=== PATIENT | male | born 1990 | race American Indian/Alaskan Native ===

== ENCOUNTER 2017-05-02 00:11 | Day surgery (SDC) | payer SELFPAY ==
[~2017-05-02] VITALS: Ht 167.6 cm; Wt 93.0 kg
--- OUTSIDE RECORDS SUMMARY | 2017-05-02 00:19 | XMS REPORT | Continuity of Care Document ---
Author Author [facility] Organization [facility] Address Unknown Phone Unavailable Allergies Active Description Code Type Severity Reaction Onset Reported/Identified Relationship to Patient Clinical Status Yes cefaclor [id number] Drug Allergy Moderate RASH 06/23/2014 Medications Problems Date Dx Coded Attending Type Code Diagnosis Diagnosed By 06/23/2014 TANA ESPINOZA DO Ot 981 06/23/2014 TANA ESPINOZA DO Ot E000.8 06/23/2014 TANA ESPINOZA DO Ot E862.1 Procedures Results Encounters ACCT No. Visit Date/Time Discharge Status Pt. Type Provider Facility Loc./Unit Complaint [id number] 06/23/2014 03:36:00 2014 04:29:00 DIS Emergency TANA ESPINOZA DO [facility] ER
[2017-05-02] MEDS ORDERED: fentaNYL INJECTION 100 MCG/2 ML AMP IVP STA ×3 (01:31→05:44)
[2017-05-02] MEDS ORDERED: NS IV 1000 ML 1,000 ML IV ONE (01:31)
--- NOTE | 2017-05-02 01:35 | ED Abdominal Pain ---
General Chief Complaint: Abdominal/GI Problems Stated Complaint: ABD PAIN Nursing Triage Note: C/O UPPER ABDOMINAL PAIN SINCE 1800 Sepsis Screen: No Definite Risk Source of Information: Patient Exam Limitations: No Limitations History of Present Illness Time Seen By Provider: 01:20 Initial Comments Here with report of central abdominal pain that has been going on since about 5 or 6 p.m. tonight. No vomiting but did have some nausea. Did take promethazine tablet and Pepto-Bismol and this did not help with the pain. Reports the pain is 9 out of 10 and constant. Had a history of happening one time previous but went away on its own. This time has not resolved. Does not seem to be associated with anything. Did have breakfast and lunch but did not eat dinner due to the pain. Timing/Duration: 4-6 Hours Severity/Quality: Moderate, Severe, Aching Location: Epigastric Radiation: No Radiation Activities at Onset: None Modifying Factors: Worsens With Breathing, Worsens With Movement Associated Symptoms: No Back Pain, No Chest Pain, No Fever/Chills, Nausea/ Vomiting, No Shortness of Air, No Weakness Allergies and Home Medications Allergies Coded Allergies: cefaclor (Unverified Allergy, Intermediate, RASH, 06/23/14) Home Medications No Active Prescriptions or Reported Meds Review of Systems Constitutional: see HPI, No chills, No fever EENTM: No Symptoms Reported Respiratory: No Symptoms Reported Cardiovascular: No Symptoms Reported Gastrointestinal: See HPI, Abdominal Pain, Denies Diarrhea, Nausea, Denies Vomiting Genitourinary: No Symptoms Reported Musculoskeletal: no symptoms reported All Other Systems Reviewed Negative Unless Noted: Yes Past Bjriwdk-Hgmozu-Xlupkv Hx Patient Social History Alcohol Use: Occasionally Uses Alcohol Beverage of Choice: Beer Recreational Drug Use: No Smoking Status: Never a Smoker Type Used: Smokeless Tobacco 2nd Hand Smoke Exposure: No Recent Foreign Travel: No Contact w/Someone Who Travel: No Recent Infectious Disease Expo: No Recent Hopitalizations: No Immunizations Up To Date Tetanus Booster (TDap): Unknown Seasonal Allergies Seasonal Allergies: No Surgeries History of Surgeries: Yes Surgeries: Adenoidectomy, Tonsillectomy Respiratory History of Respiratory Disorde: No Cardiovascular History of Cardiac Disorders: No Neurological History of Neurological Disord: No Reproductive System Hx Reproductive Disorders: No Sexually Transmitted Disease: No Genitourinary History of Genitourinary Disor: No Gastrointestinal History of Gastrointestinal Di: No Musculoskeletal History of Musculoskeletal Dis: No Endocrine History of Endocrine Disorders: No HEENT History of HEENT Disorders: No Cancer History of Cancer: No Psychosocial History of Psychiatric Problem: No Integumentary History of Skin or Integumenta: No Blood Transfusions History of Blood Disorders: No Reviewed Nursing Assessment Reviewed/Agree w Nursing PMH: Yes Family Medical History Significant Family History: No Pertinent Family Hx Physical Exam Vital Signs VS - Last 72 Hours, by Label 05/02/17 05/02/17 00:48 01:47 Temp 98.3 98.3 Pulse 68 Resp 18 B/P (MAP) 118/65 Pulse Ox 100 O2 Delivery Room Air Capillary Refill : Less Than 3 Seconds General Appearance: WD/WN, moderate distress (pain related) HEENT: PERRL/EOMI, pharynx normal Neck: full range of motion, supple Respiratory: lungs clear, normal breath sounds Cardiovascular: regular rate, rhythm, no murmur Gastrointestinal: normal bowel sounds, No guarding, No rebound, tenderness Extremities: non-tender, normal inspection Back: normal inspection, no CVA tenderness, no vertebral tenderness Neurologic/Psychiatric: alert, normal mood/affect, oriented x 3 Skin: normal color, warm/dry Progress/Results/Core Measures Results/Orders Lab Results Laboratory Tests Test 05/02/17 01:45 Range/Units White Blood Count 15.1 H 4.3-11.0 10^3/uL Red Blood Count 4.88 4.35-5.85 10^6/uL Hemoglobin 15.1 13.3-17.7 G/DL Hematocrit 42 40-54 % Mean Corpuscular Volume 86 80-99 FL Mean Corpuscular Hemoglobin 31 25-34 PG Mean Corpuscular Hemoglobin Concent 36 32-36 G/DL Red Cell Distribution Width 12.4 10.0-14.5 % Platelet Count 259 130-400 10^3/uL Mean Platelet Volume 10.6 H 7.4-10.4 FL Neutrophils (%) (Auto) 77 H 42-75 % Lymphocytes (%) (Auto) 12 12-44 % Monocytes (%) (Auto) 11 0-12 % Eosinophils (%) (Auto) 1 0-10 % Basophils (%) (Auto) 0 0-10 % Neutrophils # (Auto) 11.6 H 1.8-7.8 X 10^3 Lymphocytes # (Auto) 1.8 1.0-4.0 X 10^3 Monocytes # (Auto) 1.6 H 0.0-1.0 X 10^3 Eosinophils # (Auto) 0.1 0.0-0.3 10^3/uL Basophils # (Auto) 0.0 0.0-0.1 10^3/uL Neutrophils % (Manual) 81 % Lymphocytes % (Manual) 12 % Monocytes % (Manual) 6 % Eosinophils % (Manual) 1 % Blood Morphology Comment NORMAL Sodium Level 137 135-145 MMOL/L Potassium Level 4.0 3.6-5.0 MMOL/L Chloride Level 104 98-107 MMOL/L Carbon Dioxide Level 23 21-32 MMOL/L Anion Gap 10 5-14 MMOL/L Blood Urea Nitrogen 16 7-18 MG/DL Creatinine 1.02 0.60-1.30 MG/DL Estimat Glomerular Filtration Rate > 60 BUN/Creatinine Ratio 16 Glucose Level 109 H 70-105 MG/DL Calcium Level 9.4 8.5-10.1 MG/DL Total Bilirubin 0.6 0.1-1.0 MG/DL Aspartate Amino Transf (AST/SGOT) 21 5-34 U/L Alanine Aminotransferase (ALT/SGPT) 22 0-55 U/L Alkaline Phosphatase 59 40-136 U/L Total Protein 7.3 6.4-8.2 GM/DL Albumin 4.5 3.2-4.5 GM/DL Amylase Level 35 25-125 U/L Lipase 9 8-78 U/L My Orders Orders - CUONG MEJIA MD Amylase (05/02/17 01:31) Cbc With Automated Diff (05/02/17 01:31) Comprehensive Metabolic Panel (05/02/17 01:31) Lipase (05/02/17 01:31) Saline Lock/Iv-Start (05/02/17:31) Ns Iv 1000 Ml (Sodium Chloride 0.9%) (05/02/17 01:31) Fentanyl Injection (Sublimaze Injection (05/02/17 01:31) Manual Differential (05/02/17 01:45) Lidocaine 2% Viscous 15 Ml (Xylocaine Vi (05/02/17 04:00) Antacid Suspension (Mylanta Suspension (05/02/17 04:00) Famotidine Injection (Pepcid Injection) (05/02/17 03:51) Fentanyl Injection (Sublimaze Injection (05/02/17 03:51) Ct Abdomen/Pelvis W (05/02/17 03:51) Iohexol Injection (Omnipaque 350 Mg/Ml 1 (05/02/17 04:30) Ns (Ivpb) (Sodium Chloride 0.9% Ivpb Bag (05/02/17 04:30) Medications Given in ED Current Medications Medications Dose Ordered Sig/Eliu Route Start Time Stop Time Status Last Admin Dose Admin Al Hydrox/Mg Hydrox/Simethicone 30 ml ONCE ONCE PO 05/02/17 04:00 05/02/17 04:01 DC 05/02/17 04:01 30 ML Iohexol 100 ml ONCE ONCE IV 05/02/17 04:30 05/02/17 04:31 DC 05/02/17 04:24 100 ML Lidocaine HCl 15 ml ONCE ONCE PO 05/02/17 04:00 05/02/17 04:01 DC 05/02/17 04:01 15 ML Sodium Chloride 100 ml ONCE ONCE IV 05/02/17 04:30 05/02/17 04:31 DC 05/02/17 04:24 80 ML Sodium Chloride 1,000 ml @ 0 mls/hr Q0M ONCE IV 05/02/17 01:31 05/02/17 01:32 DC 05/02/17 01:47 0 MLS/HR Vital Signs/I&O Vital Sign - Last 12Hours 05/02/17 05/02/17 00:48 01:47 Temp 98.3 98.3 Pulse 68 Resp 18 B/P (MAP) 118/65 Pulse Ox 100 O2 Delivery Room Air Blood Pressure Mean: 82 Progress Note : Progress Note Seen and evaluated. IV, labs, normal saline 1 L bolus and fentanyl 75 g IV ordered. Monitor patient. Patient has persistent abdominal pain. CT abdomen pelvis ordered. Repeat fentanyl 75 g IV and GI cocktail ordered. Patient still complains of epigastric abdominal pain. 0510: Call from stat rad to inform of critical finding of acute appendicitis received. Reevaluation of the patient after. Patient still complaining of epigastric abdominal pain but on recheck of right lower quadrant, pain is noted. I did discuss the case with Dr. Aguila who is currently in the OR. He will see the patient in the ER and taken to the OR. All findings and concerns were discussed with the patient and family. Currently his pain is improved after the repeat dosing of fentanyl. He remains nothing by mouth. Patient will go to the after evaluation by surgeon. Patient and family agree with plan. Diagnostic Imaging Diagonstic Imaging: CT Plain Films/CT/US/NM/MRI: abdomen, pelvis Comments Findings of acute appendicitis. Reviewed: Reviewed [place] Study, Reviewed by Me Departure Communication (Admissions) Time/Spoke to Admitting Phy: 05:10 Impression Impression: Primary Impression: Appendicitis Qualified Codes: K35.2 - Acute appendicitis with generalized peritonitis Additional Impression: Epigastric abdominal pain Disposition: ADMITTED INPATIENT Condition: Stable Admissions Decision to Admit Reason: Admit from ER (General) Decision to Admit/Date: May 02, 2017 Time/Decision to Admit Time: 05:10 Departure-Patient Inst. Referrals: NO,LOCAL PHYSICIAN (PCP/Family) Primary Care Physician Scripts No Active Prescriptions or Reported Meds CUONG MEJIA MD May 02, 2017 01:35
[2017-05-02 01:56] LABS: BASOPHILS % (AUTO) 0 % (0-10); EOSINOPHILS # (AUTO) 0.1 10^3/uL (0.0-0.3); EOSINOPHILS % (AUTO) 1 % (0-10); LYMPHOCYTES # (AUTO) 1.8 X 10^3 (1.0-4.0); LYMPHOCYTES % (AUTO) 12 % (12-44); MEAN CORPUSCULAR HEMOGLOBIN 31 PG (25-34); MEAN CORPUSCULAR HGB CONC 36 G/DL (32-36); MEAN CORPUSCULAR VOLUME 86 FL (80-99); MEAN PLATELET VOLUME 10.6 FL (7.4-10.4); MONOCYTES # (AUTO) 1.6 X 10^3 (0.0-1.0); MONOCYTES % (AUTO) 11 % (0-12); NEUTROPHILS # (AUTO) 11.6 X 10^3 (1.8-7.8); NEUTROPHILS % (AUTO) 77 % (42-75); PLATELET COUNT 259 10^3/uL (130-400); RED BLOOD COUNT 4.88 10^6/uL (4.35-5.85); RED CELL DISTRIBUTION WIDTH 12.4 % (10.0-14.5); WHITE BLOOD COUNT 15.1 10^3/uL (4.3-11.0)
[2017-05-02 02:00] VITALS: BP 121/79
[2017-05-02 02:18] LABS: ALANINE AMINOTRANSFERASE 22 U/L (0-55); ALBUMIN 4.5 GM/DL (3.2-4.5); AMYLASE 35 U/L (25-125); ANION GAP 10 MMOL/L (5-14); ASPARTATE AMINO TRANSFERASE 21 U/L (5-34); BILIRUBIN,TOTAL 0.6 MG/DL (0.1-1.0); BLOOD UREA NITROGEN 16 MG/DL (7-18); BUN/CREATININE RATIO 16; CALCIUM 9.4 MG/DL (8.5-10.1); CARBON DIOXIDE 23 MMOL/L (21-32); CHLORIDE 104 MMOL/L (98-107); CREATININE SERUM 1.02 MG/DL (0.60-1.30); GFR ESTIMATED > 60; GLUCOSE 109 MG/DL (70-105); LIPASE 9 U/L (8-78); SODIUM 137 MMOL/L (135-145); TOTAL PROTEIN 7.3 GM/DL (6.4-8.2)
[2017-05-02 02:25] LABS: EOSINOPHILS % (MANUAL) 1 %; LYMPHOCYTES % (MANUAL) 12 %; NEUTROPHILS % (MANUAL) 81 %
[2017-05-02 03:15] VITALS: BP 112/68
[2017-05-02] MEDS ORDERED: FAMOTIDINE 20MG/2ML IV (PEPCID) IV STA (03:51)
[2017-05-02 04:00] VITALS: BP 122/59
[2017-05-02] MEDS ORDERED: ANTACID SUSP 30 ML UDC (MYLANTA) PO ONE (04:00)
[2017-05-02] MEDS ORDERED: LIDOCAINE 2% VISCOUS 15 ML UDC PO ONE (04:00)
[2017-05-02] MEDS ORDERED: NS 100 ML (IVPB) BAG IV ONE (04:30)
[2017-05-02] MEDS ORDERED: IOHEXOL 350 MG/ML 100 ML (OMNIPAQUE 350) VIAL IV ONE (04:30)
[2017-05-02 05:46] VITALS: BP 114/74
--- NOTE | 2017-05-02 06:19 | Consultation ---
History of Present Illness History of Present Illness Patient Consulted On(mikey/time) 05/02/17 06:14 Time Seen by Provider: 05:58 History of Present Illness Surgery asked to consult regarding Acute Appendicitis. HPI per ED: Here with report of central abdominal pain that has been going on since about 5:30 p.m. tonight. No vomiting but did have some nausea. Did take promethazine tablet and Pepto-Bismol and this did not help with the pain. Reports the pain is 9 out of 10 and constant. Had a history of happening one time previous but went away on its own. This time has not resolved. Does not seem to be associated with anything. Did have breakfast and lunch but did not eat dinner due to the pain. Pt states he has history of ulcer disease. Timing/Duration: 4-6 Hours Severity/Quality: Moderate, Severe, Aching Location: Epigastric Radiation: No Radiation Activities at Onset: None Modifying Factors: Worsens With Breathing, Worsens With Movement Associated Symptoms: No Back Pain, No Chest Pain, No Fever/Chills, Nausea/ Vomiting, No Shortness of Air, No Weakness Allergies and Home Medications Allergies Coded Allergies: cefaclor (Unverified Allergy, Intermediate, RASH, 06/23/14) Home Medications No Active Prescriptions or Reported Meds Past Zavlgtz-Nwzcqt-Qotvnt Hx Patient Social History Alcohol Use: Occasionally Uses Recreational Drug Use: No Smoking Status: Never a Smoker Type Used: Smokeless Tobacco (for at least 10 yrs) 2nd Hand Smoke Exposure: No Recent Foreign Travel: No Contact w/Someone Who Travel: No Recent Infectious Disease Expo: No Recent Hopitalizations: No Immunizations Up To Date Tetanus Booster (TDap): Unknown Seasonal Allergies Seasonal Allergies: No Surgeries History of Surgeries: Yes (finger surgery) Surgeries: Adenoidectomy, Tonsillectomy Respiratory History of Respiratory Disorde: No Cardiovascular History of Cardiac Disorders: No Neurological History of Neurological Disord: No Reproductive System Hx Reproductive Disorders: No Sexually Transmitted Disease: No Genitourinary History of Genitourinary Disor: No Gastrointestinal History of Gastrointestinal Di: No Musculoskeletal History of Musculoskeletal Dis: No Endocrine History of Endocrine Disorders: No HEENT History of HEENT Disorders: No Cancer History of Cancer: No Psychosocial History of Psychiatric Problem: No Integumentary History of Skin or Integumenta: No Blood Transfusions History of Blood Disorders: No Reviewed Nursing Assessment Reviewed/Agree w Nursing PMH: Yes Family Medical History Significant Family History: Hypertension (mother) Review of Systems-General Constitutional: chills, No diaphoresis, No malaise EENTM: No blurred vision, No hoarseness, No throat pain, No throat swelling Respiratory: No cough, No dyspnea on exertion, No hemoptysis Cardiovascular: No chest pain, No edema, No Hx of Intervention Gastrointestinal: No hematemesis, heartburn, nausea, No vomiting Genitourinary: No dysuria, No frequency, No hematuria Musculoskeletal: No back pain, No muscle pain, No muscle stiffness Skin: No change in color, No change in hair/nails Psychiatric/Neurological: Denies Depressed, Denies Tingling, Denies Tremors Other pt denies any abnormal bruising or bleeding Physical Exam-General Problems Physical Exam Vital Signs Vital Sign - Last 12Hours 05/02/17 00:48 Temp 98.3 Pulse 68 Resp 18 B/P (MAP) 118/65 Pulse Ox 100 O2 Delivery Room Air Capillary Refill : Less Than 3 Seconds General Appearance: WD/WN, mild distress Eyes: Bilateral Eye PERRL, Bilateral Eye EOMI HEENT: pharynx normal, No scleral icterus (R), No scleral icterus (L) Neck: non-tender, full range of motion, supple, normal inspection Respiratory: chest non-tender, lungs clear, normal breath sounds, no respiratory distress, no accessory muscle use Cardiovascular: regular rate, rhythm, no edema, no gallop, no JVD, no murmur Gastrointestinal: normal bowel sounds, soft, no organomegaly, tenderness (in RLQ and epigastric area), hernia (small umbilical hernia) Rectal: deferred Back: normal inspection, no CVA tenderness, no vertebral tenderness Extremities: normal range of motion, non-tender, normal inspection, no pedal edema, no calf tenderness 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, no motor/sensory deficits, alert, normal mood/affect, oriented x 3 Skin: normal color, warm/dry Lymphatic: no adenopathy (neck, axilla or groin) Data Review Labs Laboratory Tests 05/02/17 01:45: White Blood Count 15.1H, Red Blood Count 4.88, Hemoglobin 15.1, Hematocrit 42, Mean Corpuscular Volume 86, Mean Corpuscular Hemoglobin 31, Mean Corpuscular Hemoglobin Concent 36, Red Cell Distribution Width 12.4, Platelet Count 259, Mean Platelet Volume 10.6H, Neutrophils (%) (Auto) 77H, Lymphocytes (%) (Auto) 12, Monocytes (%) (Auto) 11, Eosinophils (%) (Auto) 1, Basophils (%) (Auto) 0, Neutrophils # (Auto) 11.6H, Lymphocytes # (Auto) 1.8, Monocytes # (Auto) 1.6H, Eosinophils # (Auto) 0.1, Basophils # (Auto) 0.0, Neutrophils % (Manual) 81, Lymphocytes % (Manual) 12, Monocytes % (Manual) 6, Eosinophils % (Manual) 1, Blood Morphology Comment NORMAL, Sodium Level 137, Potassium Level 4.0, Chloride Level 104, Carbon Dioxide Level 23, Anion Gap 10, Blood Urea Nitrogen 16, Creatinine 1.02, Estimat Glomerular Filtration Rate > 60, BUN/Creatinine Ratio 16, Glucose Level 109H, Calcium Level 9.4, Total Bilirubin 0.6, Aspartate Amino Transf (AST/SGOT) 21, Alanine Aminotransferase (ALT/SGPT) 22, Alkaline Phosphatase 59, Total Protein 7.3, Albumin 4.5, Amylase Level 35, Lipase 9 Assessment/Plan Assessment/Plan Assessment/Plan Acute Appendicitis Pt has elevated WBC (15) and abdominal pain; CT read as acute appendicitis. Discussed surgery with pt - Laparoscopic Appendectomy, possible open. Risks and complications not limited to pain, bleeding, infection, scar or damage to bowel. All questions answered to pt's satisfaction. Pt is NPO, IV fluids and will be given ABX just prior to OR. Will also get pain control and anti- emetics as needed. DARLYN THOMPSON DO May 02, 2017 06:19
[2017-05-02] MEDS ORDERED: CLINDAMYCIN 900 MG/6ML (CLEOCIN) VIAL ONE (06:25)
[2017-05-02] MEDS ORDERED: proPOfol 200 MG/20 ML (DIPRIVAN) VIAL IV ONE (06:26)
[2017-05-02] MEDS ORDERED: MIDAZOLAM 2 MG/2 ML (VERSED) VIAL ONE (06:26)
[2017-05-02] MEDS ORDERED: fentaNYL INJECTION 100 MCG/2 ML AMP ONE (06:26)
[2017-05-02] MEDS ORDERED: SUCCINYLCHOLINE INJ 100 MG/5 ML SYR ONE (06:26)
[2017-05-02] MEDS ORDERED: ROCURONIUM 50 MG/5 ML (ZEMURON) VIAL IV ONE (06:26)
[2017-05-02] MEDS ORDERED: NS (IVPB) 50 ML ONE (06:26)
[2017-05-02] MEDS ORDERED: CLINDAMYCIN INJECTION 900 MG in NS (IVPB) 50 ML IV ONE (06:30)
[2017-05-02] MEDS ORDERED: LIDOCAINE/EPI 1%-1:200,000 (XYLOCAINE) 10 ML VIAL ONE (06:37)
[2017-05-02] MEDS ORDERED: KETOROLAC 30 MG/ML VIAL ONE (07:23)
[2017-05-02] MEDS ORDERED: ONDANSETRON 4 MG/2 ML (SDV) Z0FRAN ONE ×2 (07:23→07:31)
[2017-05-02] MEDS ORDERED: SEVOFLURANE (ULTANE) 15 ML INHAL SOLN ONE (07:25)
[2017-05-02] MEDS ORDERED: morphine INJ 10 MG/ML 1ML (SYR OR VIAL) ONE (07:30)
[2017-05-02] MEDS ORDERED: NEOSTIGMINE (BLOXIVERZ ) 1 MG/1ML 10 ML VIAL ONE (07:30)
[2017-05-02] MEDS ORDERED: MEPERIDINE (DEMEROL) INJ 50 MG/ML ONE (07:30)
[2017-05-02] MEDS ORDERED: GLYCOPYRROLATE 0.2 MG/ML (ROBINUL) 2 ML VIAL ONE (07:30)
--- NOTE | 2017-05-02 07:48 | Progress Note-Post Operative ---
Post-Operative Progess Note Surgeon (s)/Rate Reviewer (s) Surgeon DARLYN THOMPSON DO Rate Reviewer: none Pre-Operative Diagnosis Acute appy Post-Operative Diagnosis same Procedure & Operative Findings Date of Procedure 05/02/17 Procedure Performed/Findings Lap Appy Anesthesia Type GET Estimated Blood Loss Estimated blood loss (mL): less than 5ml Specimens/Packing Specimens Removed DARLYN Zuniga DO May 02, 2017 07:48
[2017-05-02] MEDS ORDERED: HYDR-3820 PO (07:49)
--- NOTE | 2017-05-02 07:51 | Discharge Inst-Surgical ---
Discharge Inst-Surgical Depart Medication/Instructions New, Converted or Re-Newed RX: RX Given to Pt/Family Patient Instructions Follow up Appt: Make appointment for 1 week, . Instructions: No lifting greater than 20 pounds, for next 3-4 weeks No strenuous activity. May shower in 24 hours, no tub bath or soaking. Use incentive spirometer at home as directed. No Smoking Skin/Wound Care: May remove bandages. You need to leave the Dermabond on over incision it will fall off on its own. Symptoms to Report: Appetite Changes, Extremity Discoloration, Numbness/Tingling, Swelling Increased , Bleeding Excessive, Eyesight Changes, Pain Increased, Urine Color Change, Constipation(Persistent), Fever over 101 degree F, Pain/Pressure in chest, Urinating Difficulty, Cough Up/Vomit Blood, Heart Beat Irreg/Pounding, Pain/ Pressure in jaw, Vaginal Bleeding Increase, Cramps in feet or legs, Lightheadedness, Pain/Pressure in shoulder, Diarrhea(Persistent), Memory Changes Suddenly, Questions/Concerns, Weight gain consecutive days, Dizziness/ Fainting, Nausea/Vomiting, Shortness of Breath, Weight gain over 2 pounds If questions or concerns contact your physician Or seek help at emergency department. Activity Activity as Tolerated: Yes Activity Instructions: Avoid Stress to Incision Driving Instructions: No Driving/Refer to Dr. Monaco Discharge Diet: No Restrictions Diet After 24 Hours: Clear Liquid if Nauseous If Any Problems/Questions/Issu: Contact Your Physician, Go to Emergency Room Skin/Wound Care Infection Signs and Symptoms: Increased Redness, Foul Odor of Wound, Increased Drainage, Skin Itchy or Has a Rash, Increased Swelling, Temperature Above 101 F Wound Care Comment: Heating pad to neck or shoulder today for pain. Bathing Instructions: Shower Stitches/Kathy/Dermabond Dis: Dermabond Ice Pack: Ice On and Off Site DARLYN THOMPSON DO May 02, 2017 07:51
[2017-05-02] MEDS ORDERED: MEPERIDINE (DEMEROL) INJ 50 MG/ML IVP PRN (08:15)
[2017-05-02] MEDS ORDERED: ONDANSETRON 4 MG/2 ML (SDV) Z0FRAN IVP PRN (08:15)
[2017-05-02] MEDS ORDERED: HYDROmorphone (DILAUDID) 2 MG/ML VIAL IVP PRN (08:15)
[2017-05-02] MEDS ORDERED: KETOROLAC 30 MG/ML VIAL IVP ONE (08:15)
[2017-05-02] MEDS: morphine INJ 10 MG/ML 1ML (SYR OR VIAL) IVP PRN ×2 (08:20→08:26)
[2017-05-02 09:00] VITALS: BP 116/63
[2017-05-02] MEDS ORDERED: HYDROcodone/APAP 10 MG/325 MG (LORTAB) TAB PO ONE (09:45)
--- NOTE | 2017-05-02 09:54 | Diagnostic Imaging Report ---
PROCEDURE: CT abdomen and pelvis with contrast. TECHNIQUE: Multiple contiguous axial images were obtained through the abdomen and pelvis after administration of intravenous contrast. INDICATION: Abdominal pain. No priors. The appendix arises off the caudal pole of the cecum and is oriented inferomedially, its wall is irregular, ill-defined and hyperenhancing with infiltration and edema of the periappendiceal fat. Its most identifiable distal portion measures a diameter of 9.4 mm. Acute appendicitis is presumed. No identifiable extraluminal air collection and no abscess or drainable fluid collection. No bowel obstruction or substantial ileus. No other acute inflammatory process. Liver, gallbladder, spleen, adrenals, pancreas unremarkable. There is no adrenal mass. The kidneys are unobstructed. The osseous structures nonacute. Prostate, seminal vesicles and urinary bladder unremarkable. The lung bases negative. IMPRESSION: Constellation of findings most consistent with acute appendicitis without abscess, drainable fluid collection, obstruction or free air. Dictated by: Dictated on workstation # [id number]
[2017-05-02 10:26] VITALS: BP 116/63
--- NOTE | 2017-05-02 23:58 | OPERATIVE REPORT ---
DATE OF SERVICE: 05/02/2017 PREOPERATIVE DIAGNOSIS: Acute appendicitis. POSTOPERATIVE DIAGNOSIS: Acute appendicitis. PROCEDURE: Laparoscopic appendectomy. SURGEON: Dr. Aguila. CHAR FILTER TANK TENDER HEAD: None. ANESTHESIA: General endotracheal tube. SPECIMEN: Appendix. BLOOD LOSS: Scant. FLUIDS: Per anesthesia. POSTOPERATIVE CONDITION: Stable. INDICATION FOR PROCEDURE: The patient is a 19-year-old male who had pain in the mid epigastric and upper epigastric area. Then I went to the right lower quadrant, had an elevated white count and CAT scan read as acute appendicitis. FINDINGS: The patient had acute appendicitis, removed. PROCEDURE NOTE: After informed consent was obtained, the patient was brought to the operating room, placed on the table in supine position. He was sterilely prepped and draped in normal fashion. Local lidocaine was used to infiltrate the skin above the umbilicus. Made an incision with #11 blade, carried down through the skin into the subcutaneous tissue, then deepened down the subcutaneous tissue with Bovie electrocautery down to the fascia. Fascia was incised with Bovie electrocautery and the abdomen swept a finger around, placed 0 Vicryl sxsdyz-oh-hqeuf suture, then placed 11 mm trocar port under direct visualization. Created a pneumoperitoneum and then placed 2 more ports in a normal fashion using local lidocaine, an 11 blade for stab incision and the Mind Field SolutionsStep system, all done under direct visualization, one suprapubically and one in the left lower quadrant. The patient was then placed in Trendelenburg and rotated little bit left, able to visualize the appendix and grasped with the grasper and then start coming across the mesoappendix with the LigaSure, clamping, coagulating and transecting in this fashion coming across the mesoappendix stepwise and ligating the mesoappendix. Once the appendix was only attached to the cecum, I switched to a 5 mm camera, brought Endo-JAZLYN into the 11 mm port placed across the base of appendix, clamped and fired, thereby transecting the appendix pictures were taken and then placed a bag in the abdomen, placed the appendix in the bag and then removed this through the supraumbilical incision. Placed the port back in the abdomen and looked around, irrigated and suctioned this out and no other obvious pathology. At this point, the patient was placed back in the supine position, removed all ports under direct visualization and allowed pneumoperitoneum to escape. Closed the supraumbilical incision, closing the fascia with 0 Vicryl wbsfzp-cl-wlpky suture, previously placed and copiously irrigated all incisions with normal saline. Closed the 2 small 5 mm incisions with a single interrupted 4-0 undyed Monocryl subcuticular stitch. Closed the supraumbilical incision with 3 interrupted 4-0 undyed Monocryl subcuticular stitches. Area was cleaned and dried and Dermabond placed and then Band-Aids. The patient was then transferred to recovery room in stable condition. Sponge, instrument and needle count correct at the end of the case. Job ID: [id number] DocumentID: [id number] Dictated Date: 05/02/2017 21:44:02 Director Of Culture Date: 05/02/2017 23:57:21 Dictated By: DARLYN AGUILA DO
== END 2017-05-02 11:30 | disposition home or self-care (01) ==
LOC: EDUNIT# 00:11 → ER 00:16 → SDC 05:37
PROVIDERS: ATTEND Surgery
DX: K35.80 Unspecified acute appendicitis (principal); F17.220 Nicotine dependence, chewing tobacco, uncomplicated
CPT/HCPCS: 36415; 74177; 80053; 82150; 83690; 85007; 85027